=== PATIENT | female | born 1955 | race Two or more races ===

== ENCOUNTER 2019-02-26 05:45 | Day surgery (SDC) | payer OTHER ==
[~2019-02-26 05:45] MED LIST: FENOFIBRATE160 MG PO; LOSARTAN POTASS50 MG PO; SYNTHROID112 MCG PO; TOPROL XL25 M1 PO; VITAMIN D35000 UNIT PO; ZOCOR20 MG PO
[2019-02-26] MEDS ORDERED: MACROBID 100 M100 MG PO (11:53)
[2019-02-26] MEDS ORDERED: ULTRACET PO (11:53)
== END 2019-02-26 15:13 | disposition home or self-care (01) ==
LOC: CIR.AMB 05:45
DX: N81.6 Rectocele (principal); N81.5 Vaginal enterocele

== ENCOUNTER 2019-07-16 05:47 | Day surgery (SDC) | payer OTHER ==
[~2019-07-16 05:47] MED LIST changes: +MACROBID 100 M100 MG PO; +ULTRACET PO
[2019-07-16] MEDS ORDERED: MACROBID 100 M100 MG PO (08:41)
[2019-07-16] MEDS ORDERED: ULTRACET PO (08:41)
== END 2019-07-16 12:00 | disposition home or self-care (01) ==
LOC: CIR.AMB 05:47
DX: N81.11 Cystocele, midline (principal); N81.5 Vaginal enterocele